=== PATIENT | female | born 1945 | race Caucasian/White ===

== ENCOUNTER → 2018-03-29 | Outpatient (CLI) | payer MEDICARE, BC ==
--- NOTE | 2018-03-29 13:54 | RADIOLOGY REPORT (SQ) ---
EXAM DESCRIPTION: BARIUM SWALLOW ESOPHAGUS COMPLETED DATE/TIME: 03/29/2018 8:41 am REASON FOR STUDY: DYSPHAGIA (R13.10) R13.10 DYSPHAGIA, UNSPECIFIED COMPARISON: None. TECHNIQUE: Under fluoroscopic guidance, patient ingested effervescent granules followed by thick and thin barium. Fluoroscopic spot images and routine radiographic images acquired and stored on PACS. 12 MM BARIUM TABLET GIVEN: Yes. No significant delay in passage. LIMITATIONS: None. FLUOROSCOPY TIME: FLUORO TIME: 1 minutes 33 seconds Multiple fluoroscopic images saved to PACS. FINDINGS: NEUROMUSCULAR COORDINATION OF SWALLOW: Normal. No aspiration. ESOPHAGEAL MOTILITY: Normal peristalsis. No esophageal spasm. ESOPHAGEAL MUCOSA: Normal mucosa without masses or ulceration. GASTRO-ESOPHAGEAL JUNCTION: Moderate hiatal hernia. Reflux to the level of the thoracic inlet. NON-GI TRACT STRUCTURES: No significant finding. OTHER: No other significant finding. IMPRESSION: Hiatal hernia. Marked gastroesophageal reflux. No stricture. COMMENT: Quality ID [id number]: Final reports for procedures using fluoroscopy that document radiation exp osure indices, or exposure time and number of fluorographic images (if radiation exposure indices are not available) TECHNICAL DOCUMENTATION: JOB ID: [id number] [employer] ([place])- All Rights Reserved Reading location - IP/workstation name: [email or web address]
== END ==
LOC: RAD 07:54
PROVIDERS: ATTEND Internal Medicine Gastroenterology
DX: R13.10 Dysphagia, unspecified (principal)
CPT/HCPCS: 74220

== ENCOUNTER 2018-11-23 08:59 | Inpatient (IN) | payer MEDICARE, BC ==
[2018-11-23] MEDS ORDERED: NORMAL SALINE 1000 ML 1,000 ML IV ONE (09:33)
--- NOTE | 2018-11-23 09:34 | ER Document Report ---
ED Medical Screen (RME) - General Chief Complaint: Loose Stools Stated Complaint: DIARRHEA Time Seen by Provider: 11/23/18 09:28 Primary Care Provider: DAVID MORALES MD [Primary Care Provider] - Follow up as needed Notes: Patient states that she was recently discharged from the hospital after being admitted for pancreatitis. Patient does report receiving antibiotics during the admission. Patient states she has had diarrhea since her discharge on 817. Patient states she has had about 10 diarrheal bowel movements today. Patient has had some blood in the stool. Patient denies any fever. Patient complains of mild lower abdominal tenderness. hx; cholecystectomy, hypertension, back pain, pancreatitis, alcohol use I have greeted and performed a rapid initial assessment of this patient. A comprehensive ED assessment and evaluation of the patient, analysis of test results and completion of the medical decision making process will be conducted by additional ED providers. TRAVEL OUTSIDE OF THE [place] IN LAST 30 DAYS: No - Related Data Allergies/Adverse Reactions: diphenhydramine [From Benadryl] Allergy (Verified 11/23/18 09:02) ondansetron [From Zofran] Allergy (Verified 11/23/18 09:02) prochlorperazine [From Compazine] Allergy (Verified 11/23/18 09:02) promethazine [From Phenergan] Allergy (Verified 11/23/18 09:02) Codeine Allergy (Uncoded 11/23/18 09:02) Physical Exam - Vital signs Vitals: Temp Pulse Resp BP Pulse Ox 99.1 F 109 H 16 127/60 H 94 11/23/18 09:07 11/23/18 09:07 11/23/18 09:07 11/23/18 09:07 11/23/18 09:07 - Abdominal Tenderness: Tender - Lower pelvic Course - Vital Signs Vital signs: Temp Pulse Resp BP Pulse Ox 99.1 F 109 H 16 127/60 H 94 11/23/18 09:07 11/23/18 09:07 11/23/18 09:07 11/23/18 09:07 11/23/18 09:07 Doctor's Discharge - Discharge Referrals: DAVID MORALES MD [Primary Care Provider] - Follow up as needed
[2018-11-23 10:11] LABS: HEMATOCRIT 38.4 % (36.0-47.0); HEMOGLOBIN 12.5 g/dL (12.0-15.5); MEAN CORPUSCULAR HEMOGLOBIN 28.9 pg (27.0-33.4); MEAN CORPUSCULAR HGB CONC 32.6 g/dL (32.0-36.0); MEAN CORPUSCULAR VOLUME 89 fl (80-97); PLATELET COUNT 372 10^3/uL (150-450); RED BLOOD COUNT 4.33 10^6/uL (3.72-5.28); RED CELL DISTRIBUTION WIDTH 14.5 % (11.5-14.0); WHITE BLOOD COUNT 22.8 10^3/uL (4.0-10.5)
[2018-11-23 10:34] LABS: ALBUMIN 4.1 g/dL (3.5-5.0); ALKALINE PHOSPHATASE 74 U/L (38-126); ANION GAP 11 (5-19); ASPARTATE AMINO TRANSFERASE 34 U/L (14-36); BILIRUBIN,DIRECT 0.4 mg/dL (0.0-0.4); BILIRUBIN,TOTAL 0.7 mg/dL (0.2-1.3); BLOOD UREA NITROGEN 14 mg/dL (7-20); CALCIUM 9.7 mg/dL (8.4-10.2); CARBON DIOXIDE 24 mmol/L (22-30); CHLORIDE 100 mmol/L (98-107); GLUCOSE 108 mg/dL (75-110); POTASSIUM 4.1 mmol/L (3.6-5.0); TOTAL PROTEIN 7.5 g/dL (6.3-8.2)
[2018-11-23 10:53] LABS: ABSOLUTE LYMPHOCYTES# (MANUAL) 2.3 10^3/uL (0.5-4.7); ABSOLUTE MONOCYTES # (MANUAL) 0.2 10^3/uL (0.1-1.4); ANISOCYTOSIS SLIGHT; BASOPHILS % (MANUAL) 1 % (0-2); EOSINOPHILS % (MANUAL) 0 % (0-6); LYMPHOCYTES % (MANUAL) 10 % (13-45); MONOCYTES % (MANUAL) 1 % (3-13); PLATELET COMMENT ADEQUATE; POLYCHROMASIA SLIGHT; SEGMENTED NEUTROPHILS % (MAN) 88 % (42-78); TOTAL CELLS COUNTED 100
--- NOTE | 2018-11-23 11:06 | ER Document Report ---
ED General - General Chief Complaint: Loose Stools Stated Complaint: DIARRHEA Time Seen by Provider: 11/23/18 09:28 TRAVEL OUTSIDE OF THE [place] IN LAST 30 DAYS: No - HPI Notes: She presents with multiple bouts of loose stools since 11 November after being hospitalized for pancreatitis for 6 days in an outside hospital. Denies any fevers or chills cough congestion or nausea or vomiting. Is not on blood t hinners. Has intermittent abdominal cramping that is not present right now in the emergency department - Related Data Allergies/Adverse Reactions: diphenhydramine [From Benadryl] Allergy (Verified 11/23/18 09:02) ondansetron [From Zofran] Allergy (Verified 11/23/18 09:02) prochlorperazine [From Compazine] Allergy (Verified 11/23/18 09:02) promethazine [From Phenergan] Allergy (Verified 11/23/18 09:02) Codeine Allergy (Uncoded 11/23/18 09:02) Past Medical History - Social History Smoking Status: Former Smoker Frequency of alcohol use: Occasional Drug Abuse: None Family History: Reviewed & Not Pertinent Patient has suicidal ideation: No Patient has homicidal ideation: No Review of Systems - Review of Systems Constitutional: No symptoms reported EENT: No symptoms reported Cardiovascular: No symptoms reported Respiratory: See HPI Gastrointestinal: No symptoms reported Genitourinary: No symptoms reported Female Genitourinary: No symptoms reported Musculoskeletal: No symptoms reported Skin: No symptoms reported Hematologic/Lymphatic: No symptoms reported Neurological/Psychological: No symptoms reported Physical Exam - Vital signs Vitals: Temp Pulse Resp BP Pulse Ox 99.1 F 109 H 16 127/60 H 94 11/23/18 09:07 11/23/18 09:07 11/23/18 09:07 11/23/18 09:07 11/23/18 09:07 - General General appearance: Appears well, Alert - HEENT Head: Normocephalic Eyes: Normal Mucous membranes: Other - Mildly dry oral mucous membranes - Respiratory Respiratory status: No respiratory distress Chest status: Nontender Breath sounds: Normal - Cardiovascular Rhythm: Regular Heart sounds: Normal auscultation Murmur: No - Abdominal Inspection: Normal Distension: No distension Bowel sounds: Normal - Extremities General upper extremity: Normal inspection General lower extremity: Normal strength - Neurological Neuro grossly intact: Yes Cognition: Normal Orientation: AAOx4 Course - Re-evaluation Re-evalutation: 11/23/18 12:31 Patient found to have C. difficile with blood. Due to age and numerous similar stools per day will be hospitalized at this time. - Vital Signs Vital signs: Temp Pulse Resp BP Pulse Ox 97.5 F 104 H 18 144/85 H 94 11/24/18 08:35 11/24/18 08:35 11/24/18 08:35 11/24/18 08:35 11/24/18 08:35 - Laboratory Result Diagrams: 11/24/18 03:35 11/24/18 03:35 Laboratory results interpreted by me: 11/23/18 11/23/18 11/23/18 09:55 09:55 11:20 WBC 22.8 H RDW 14.5 H Seg Neuts % (Manual) 88 H Lymphocytes % (Manual) 10 L Monocytes % (Manual) 1 L Abs Neuts (Manual) 20.1 H Sodium 135.2 L Est GFR (MDRD) Non-Af 59 L Urine Protein 100 H Urine Blood MODERATE H Ur Leukocyte Esterase TRACE H Discharge - Discharge Clinical Impression: C. difficile diarrhea Condition: Good Disposition: ADMITTED INPATIENT Admitting Provider: Geraldine (Hospitalist) Unit Admitted: Medical Floor
[2018-11-23 11:37] LABS: APPEARANCE,URINE CLOUDY; BILIRUBIN,URINE NEGATIVE (NEGATIVE); COLOR,URINE YELLOW; GLUCOSE, URINE NEGATIVE (NEGATIVE); KETONES,URINE NEGATIVE (NEGATIVE); LEUKOCYTE ESTERASE,URINE TRACE (NEGATIVE); NITRITE,URINE NEGATIVE (NEGATIVE); PROTEIN,URINE 100 mg/dL (NEGATIVE); URINE SPECIFIC GRAVITY 1.026; UROBILINOGEN,URINE NEGATIVE mg/dL (<2.0)
[2018-11-23] MEDS ORDERED: VANCOMYCIN HCL INJ 500 MG VIAL PO ONE (12:30)
--- NOTE | 2018-11-23 16:10 | PDOC H&P ---
History of Present Illness Admission Date/PCP: 11/23/18 13:00 History of Present Illness: JOSE ESPINOZA is a 73 year old female who said she was in the hospital about a week and a half ago in [place] with a pancreatitis, and she said at that time she was given some antibiotics because the provider she was seeing there was trying to speed up her recovery said that she could catch her flight home, according to her. She said the diarrhea started shortly before she was discharged and it has been getting progressively worse. She said she had been 10 times today and had 3 episodes while she was in the ER. She has not been running a fever, but she said her p.o. intake is decreased and she has not eaten anything about a day and a half. She describes her stool as loose and watery. She came into the ER and was found to have a leukocytosis and her stool was positive for C. difficile. She is being admitted for IV fluids and oral vancomycin. Past Medical History Past Medical History: Anxiety, hyperlipidemia, osteopenia Social History Smoking Status: Former Smoker Family History Parental Family History Reviewed: Yes - Hypertension Children Family History Reviewed: Yes - Nothing known Sibling(s) Family History Reviewed.: Yes - Nothing known Medication/Allergy Home Medications: Alendronate Sodium [Fosamax "Weekly" 35 mg Tablet] 35 mg PO GALVAN@1000 11/23/18 Estradiol [Estrace] 1 applic PV MOWEFR@1000 11/23/18 Lansoprazole [Prevacid] 30 mg PO DAILY 11/23/18 Lorazepam [Ativan 1 mg Tablet] 1 mg PO DAILYP PRN 11/23/18 Mirtazapine [Remeron 15 mg Tablet] 15 mg PO QHS 11/23/18 Pramipexole Di-HCl [Mirapex] 1 mg PO QHS 11/23/18 Simvastatin [Zocor 40 mg Tablet] 40 mg PO QHS 11/23/18 Allergies/Adverse Reactions: diphenhydramine [From Benadryl] Allergy (Verified 11/23/18 09:02) ondansetron [From Zofran] Allergy (Verified 11/23/18 09:02) prochlorperazine [From Compazine] Allergy (Verified 11/23/18 09:02) promethazine [From Phenergan] Allergy (Verified 11/23/18 09:02) Codeine Allergy (Uncoded 11/23/18 09:02) Review of Systems All systems: reviewed and no additional remarkable complaints except as stated - All systems were reviewed and were negative except as noted in the HPI Physical Exam Vital Signs: Temp Pulse Resp BP Pulse Ox 99.1 F 109 H 16 127/60 H 94 11/23/18 09:07 11/23/18 09:07 11/23/18 09:07 11/23/18 09:07 11/23/18 09:07 Intake & Output 11/22/18 11/23/18 11/24/18 06:59 06:59 06:59 Intake Total 1000 Balance 1000 Weight 63.1 kg General appearance: PRESENT: no acute distress, cooperative, disheveled Head exam: PRESENT: atraumatic, normocephalic Eye exam: PRESENT: EOMI, PERRLA. ABSENT: conjunctival injection, nystagmus, scleral icterus Ear exam: PRESENT: normal external ear exam Mouth exam: PRESENT: moist, neck supple Throat exam: ABSENT: post pharyngeal erythema Neck exam: PRESENT: full ROM. ABSENT: carotid bruit, JVD, lymphadenopathy, meningismus, tenderness, thyromegaly Respiratory exam: PRESENT: clear to auscultation radha, symmetrical, unlabored. ABSENT: accessory muscle use, chest wall tenderness, crackles, prolonged expiratory phas, rhonchi, tachypnea, wheezes Cardiovascular exam: PRESENT: RRR, +S1, +S2 Pulses: PRESENT: normal carotid pulses Vascular exam: PRESENT: normal capillary refill GI/Abdominal exam: PRESENT: hyperactive bowel sounds, soft. ABSENT: distended, guarding, rebound, tenderness Extremities exam: ABSENT: clubbing, pedal edema Musculoskeletal exam: PRESENT: normal inspection. ABSENT: deformity Neurological exam: PRESENT: alert, awake, oriented to person, oriented to place, oriented to time, oriented to situation, CN II-XII grossly intact. ABSENT: motor sensory deficit Psychiatric exam: PRESENT: appropriate affect, normal mood Skin exam: PRESENT: dry, warm Results Laboratory Results: 11/23/18 09:55 11/23/18 09:55 11/23/18 11/23/18 11/23/18 09:55 09:55 11:20 WBC 22.8 H RBC 4.33 Hgb 12.5 Hct 38.4 MCV 89 MCH 28.9 MCHC 32.6 RDW 14.5 H Plt Count 372 Seg Neutrophils % Not Reportable Sodium 135.2 L Potassium 4.1 Chloride 100 Carbon Dioxide 24 Anion Gap 11 BUN 14 Creatinine 0.93 Est GFR ( Amer) > 60 Glucose 108 Calcium 9.7 Total Bilirubin 0.7 AST 34 Alkaline Phosphatase 74 Total Protein 7.5 Albumin 4.1 Lipase 31.9 Urine Color YELLOW Urine Appearance CLOUDY Urine pH 5.0 Ur Specific [place] 1.026 Urine Protein 100 H Urine Glucose (UA) NEGATIVE Urine Ketones NEGATIVE Urine Blood MODERATE H Urine Nitrite NEGATIVE Ur Leukocyte Esterase TRACE H Urine WBC (Auto) 18 Urine RBC (Auto) 2 Assessment and Plan - Diagnosis (1) C. difficile diarrhea Is this a current diagnosis for this admission?: Yes Plan: We are going to give her some IV fluids because even though her labs look good she is sure to be dehydrated. We are starting her on some p.o. vancomycin and will assess her response. We will continue to check her electrolytes to see if they need to be replaced. - Time Time Spent with patient: 35 or more minutes - Inpatient Certification Based on my medical assessment, after consideration of the patient's comorbidities, presenting symptoms, or acuity I expect that the services needed warrant INPATIENT care.: Yes I certify that my determination is in accordance with my understanding of Medicare's requirements for reasonable and necessary INPATIENT services [42 CFR 412.3e].: Yes Medical Necessity: Need Close Monitoring Due to Risk of Patient Decompensation, Need For IV Fluids, Risk of Complication if Not Cared For in Hospital
[2018-11-23] MEDS: VANCOMYCIN HCL INJ 500 MG VIAL PO SCH (18:18)
[2018-11-23] MEDS ORDERED: PRAMIPEXOLE DI-HCL 0.5 MG TABLET PO SCH (22:00)
[2018-11-23] MEDS ORDERED: (PENDING PHARMACY ID) (Pramipexole Di-Hcl [Mirapex] 1 MG) PO SCH (22:00)
[2018-11-23] MEDS: MIRTAZAPINE 15 MG TABLET PO SCH (22:52)
[2018-11-23] MEDS: SIMVASTATIN 40 MG TABLET PO SCH (22:53)
[2018-11-23] MEDS: HEPARIN SOD (PORCINE) 5,000 UNIT/ML 1 ML VIAL SUBCUT SCH (22:58)
[2018-11-24] MEDS: VANCOMYCIN HCL INJ 500 MG VIAL PO SCH ×4 (00:38→17:37)
[2018-11-24 04:10] LABS: HEMATOCRIT 34.5 % (36.0-47.0); HEMOGLOBIN 11.4 g/dL (12.0-15.5); MEAN CORPUSCULAR HEMOGLOBIN 29.3 pg (27.0-33.4); MEAN CORPUSCULAR VOLUME 89 fl (80-97); PLATELET COUNT 309 10^3/uL (150-450); RED BLOOD COUNT 3.88 10^6/uL (3.72-5.28); RED CELL DISTRIBUTION WIDTH 14.5 % (11.5-14.0)
[2018-11-24 04:40] LABS: ANION GAP 8 (5-19); BLOOD UREA NITROGEN 11 mg/dL (7-20); CALCIUM 8.9 mg/dL (8.4-10.2); CARBON DIOXIDE 25 mmol/L (22-30); CHLORIDE 105 mmol/L (98-107); GLUCOSE 108 mg/dL (75-110); POTASSIUM 4.2 mmol/L (3.6-5.0)
[2018-11-24] MEDS: HEPARIN SOD (PORCINE) 5,000 UNIT/ML 1 ML VIAL SUBCUT SCH ×3 (05:57→22:09)
[2018-11-24] MEDS ORDERED: (PENDING PHARMACY ID) (Lansoprazole [Prevacid] 30 MG) PO SCH (10:00)
[2018-11-24] MEDS ORDERED: ESTRADIOL PV SCH (10:00)
[2018-11-24] MEDS: NORMAL SALINE 1000 ML 1,000 ML IV PRN (10:12)
[2018-11-24] MEDS: PANTOPRAZOLE SODIUM 40 MG TABLET.DR PO SCH (10:12)
[2018-11-24] MEDS: PRAMIPEXOLE DI-HCL 0.5 MG TABLET PO SCH (17:38)
--- NOTE | 2018-11-24 17:40 | PDOC PROGRESS REPORT ---
Subjective Progress Note for:: 11/24/18 Subjective:: No adverse events overnight. She says she still had several bowel movements overnight and has had a few already by the time I had seen her this morning. She said other than that she feels fine. She had a little bit of nausea this morning but that is since resolved. Reason For Visit: C DIFFICILE COLITIS Physical Exam Vital Signs: Temp Pulse Resp BP Pulse Ox 98.5 F 93 18 146/83 H 100 11/24/18 13:09 11/24/18 14:00 11/24/18 13:09 11/24/18 13:09 11/24/18 13:09 Intake & Output 11/23/18 11/24/18 11/25/18 06:59 06:59 06:59 Intake Total 1882 480 Output Total 0 Balance 1882 480 Weight 63.2 kg General appearance: PRESENT: no acute distress, cooperative Respiratory exam: PRESENT: clear to auscultation radha, symmetrical, unlabored. ABSENT: accessory muscle use, chest wall tenderness, crackles, prolonged expiratory phas, rhonchi, tachypnea, wheezes Cardiovascular exam: PRESENT: RRR, +S1, +S2 Pulses: PRESENT: normal carotid pulses Vascular exam: PRESENT: normal capillary refill GI/Abdominal exam: PRESENT: normal bowel sounds, soft. ABSENT: distended, guarding, rebound, tenderness Extremities exam: ABSENT: clubbing, pedal edema Musculoskeletal exam: ABSENT: deformity Neurological exam: PRESENT: alert, awake, oriented to person, oriented to place, oriented to time, oriented to situation Psychiatric exam: PRESENT: appropriate affect, normal mood Skin exam: PRESENT: dry, warm Results Laboratory Results: 11/24/18 03:35 11/24/18 03:35 11/24/18 11/24/18 03:35 03:35 WBC 16.0 H RBC 3.88 Hgb 11.4 L Hct 34.5 L MCV 89 MCH 29.3 MCHC 33.0 RDW 14.5 H Plt Count 309 Sodium 138.1 Potassium 4.2 Chloride 105 Carbon Dioxide 25 Anion Gap 8 BUN 11 Creatinine 0.79 Est GFR ( Amer) > 60 Glucose 108 Calcium 8.9 Assessment and Plan - Diagnosis (1) C. difficile diarrhea Is this a current diagnosis for this admission?: Yes Plan: Her white blood cell count is coming down and her electrolytes look good, but she still having a lot of stool output. We will give her another day of the vancomycin, and if she still having a high stool output tomorrow, will add adjunctive Flagyl. - Time Time Spent with patient: 15-24 minutes
[2018-11-24] MEDS: SIMVASTATIN 40 MG TABLET PO SCH (22:17)
[2018-11-24] MEDS: MIRTAZAPINE 15 MG TABLET PO SCH (22:17)
[2018-11-24] MEDS: LORAZEPAM 1 MG TABLET PO PRN (22:20)
[2018-11-25] MEDS: VANCOMYCIN HCL INJ 500 MG VIAL PO SCH ×4 (00:36→17:21)
[2018-11-25] MEDS: NORMAL SALINE 1000 ML 1,000 ML IV PRN (01:23)
[2018-11-25 04:52] LABS: HEMATOCRIT 33.7 % (36.0-47.0); HEMOGLOBIN 11.2 g/dL (12.0-15.5); MEAN CORPUSCULAR HEMOGLOBIN 29.2 pg (27.0-33.4); MEAN CORPUSCULAR HGB CONC 33.2 g/dL (32.0-36.0); MEAN CORPUSCULAR VOLUME 88 fl (80-97); PLATELET COUNT 333 10^3/uL (150-450); RED BLOOD COUNT 3.82 10^6/uL (3.72-5.28); RED CELL DISTRIBUTION WIDTH 14.1 % (11.5-14.0); WHITE BLOOD COUNT 10.2 10^3/uL (4.0-10.5)
[2018-11-25 05:04] LABS: ANION GAP 8 (5-19); BLOOD UREA NITROGEN 8 mg/dL (7-20); CALCIUM 8.6 mg/dL (8.4-10.2); CARBON DIOXIDE 23 mmol/L (22-30); CHLORIDE 110 mmol/L (98-107); GLUCOSE 87 mg/dL (75-110); POTASSIUM 3.8 mmol/L (3.6-5.0)
[2018-11-25] MEDS: HEPARIN SOD (PORCINE) 5,000 UNIT/ML 1 ML VIAL SUBCUT SCH ×3 (05:09→22:18)
[2018-11-25] MEDS: PANTOPRAZOLE SODIUM 40 MG TABLET.DR PO SCH (09:31)
[2018-11-25] MEDS: METRONIDAZOLE 500 MG TABLET PO SCH ×2 (11:47→17:21)
[2018-11-25] MEDS ORDERED: LORAZEPAM 1 MG TABLET ONE (12:28)
[2018-11-25] MEDS: LORAZEPAM 1 MG TABLET PO PRN (12:29)
--- NOTE | 2018-11-25 16:16 | PDOC PROGRESS REPORT ---
Subjective Progress Note for:: 11/25/18 Subjective:: She said that since yesterday morning she has had 16 bowel movements. She has not had any fevers and her white count is come down but she still has a high volume stool output. She was very anxious about it. Reason For Visit: C DIFFICILE COLITIS Physical Exam Vital Signs: Temp Pulse Resp BP Pulse Ox 97.5 F 115 H 18 126/73 H 96 11/25/18 13:03 11/25/18 14:00 11/25/18 13:03 11/25/18 13:03 11/25/18 13:03 Intake & Output 11/24/18 11/25/18 11/26/18 06:59 06:59 06:59 Intake Total 1882 2100 Output Total 0 Balance 1882 2100 Weight 63.2 kg 62.9 kg General appearance: PRESENT: no acute distress, cooperative Respiratory exam: PRESENT: clear to auscultation radha, symmetrical, unlabored. ABSENT: accessory muscle use, chest wall tenderness, crackles, prolonged expiratory phas, rhonchi, tachypnea, wheezes Cardiovascular exam: PRESENT: RRR, +S1, +S2 Pulses: PRESENT: normal carotid pulses Vascular exam: PRESENT: normal capillary refill GI/Abdominal exam: PRESENT: normal bowel sounds, soft. ABSENT: distended, guarding, rebound, tenderness Extremities exam: ABSENT: clubbing, pedal edema Musculoskeletal exam: ABSENT: deformity Neurological exam: PRESENT: alert, awake, oriented to person, oriented to place, oriented to time, oriented to situation Psychiatric exam: PRESENT: appropriate affect, normal mood Skin exam: PRESENT: dry, warm Results Laboratory Results: 11/25/18 04:33 11/25/18 04:33 11/25/18 11/25/18 04:33 04:33 WBC 10.2 RBC 3.82 Hgb 11.2 L Hct 33.7 L MCV 88 MCH 29.2 MCHC 33.2 RDW 14.1 H Plt Count 333 Sodium 141.3 Potassium 3.8 Chloride 110 H Carbon Dioxide 23 Anion Gap 8 BUN 8 Creatinine 0.59 Est GFR ( Amer) > 60 Glucose 87 Calcium 8.6 11/23/18 10:01 Stool - Stool - Final Assessment and Plan - Diagnosis (1) C. difficile diarrhea Is this a current diagnosis for this admission?: Yes Plan: We will continue with oral vancomycin but I am going to add oral Flagyl. We will try that for a day. If she still having high volume of stool output tomorrow, I will probably add Dificid. If I have to add Dificid and it does not help her, will get a GI consultation. - Time Time Spent with patient: 15-24 minutes
[2018-11-25] MEDS: PRAMIPEXOLE DI-HCL 0.5 MG TABLET PO SCH (17:21)
[2018-11-25] MEDS: MIRTAZAPINE 15 MG TABLET PO SCH (22:12)
[2018-11-25] MEDS: SIMVASTATIN 40 MG TABLET PO SCH (22:12)
[2018-11-26] MEDS: LORAZEPAM 1 MG TABLET PO PRN ×2 (00:35→22:38)
[2018-11-26] MEDS: VANCOMYCIN HCL INJ 500 MG VIAL PO SCH ×4 (00:35→17:27)
[2018-11-26] MEDS: METRONIDAZOLE 500 MG TABLET PO SCH ×4 (00:36→17:28)
[2018-11-26 05:43] LABS: HEMATOCRIT 33.2 % (36.0-47.0); HEMOGLOBIN 11.2 g/dL (12.0-15.5); MEAN CORPUSCULAR HEMOGLOBIN 29.5 pg (27.0-33.4); MEAN CORPUSCULAR HGB CONC 33.8 g/dL (32.0-36.0); MEAN CORPUSCULAR VOLUME 87 fl (80-97); PLATELET COUNT 322 10^3/uL (150-450); WHITE BLOOD COUNT 8.2 10^3/uL (4.0-10.5)
[2018-11-26 05:52] LABS: ANION GAP 8 (5-19); BLOOD UREA NITROGEN 5 mg/dL (7-20); CALCIUM 8.7 mg/dL (8.4-10.2); CARBON DIOXIDE 21 mmol/L (22-30); CHLORIDE 110 mmol/L (98-107); GLUCOSE 86 mg/dL (75-110); POTASSIUM 3.6 mmol/L (3.6-5.0)
[2018-11-26] MEDS: HEPARIN SOD (PORCINE) 5,000 UNIT/ML 1 ML VIAL SUBCUT SCH ×2 (06:02→14:16)
[2018-11-26] MEDS: PANTOPRAZOLE SODIUM 40 MG TABLET.DR PO SCH (09:57)
--- NOTE | 2018-11-26 14:26 | PDOC PROGRESS REPORT ---
Subjective Progress Note for:: 11/26/18 Subjective:: No adverse events overnight. She did not have any documented bowel movements overnight, but she told me that she has had 5 already this morning. The nurse tells me she has not seen the patient having any bowel movements. Reason For Visit: C DIFFICILE COLITIS Physical Exam Vital Signs: Temp Pulse Resp BP Pulse Ox 98.3 F 81 14 144/69 H 100 11/26/18 11:47 11/26/18 11:47 11/26/18 11:47 11/26/18 11:47 11/26/18 11:47 Intake & Output 11/25/18 11/26/18 11/27/18 06:59 06:59 06:59 Intake Total 2100 1480 240 Output Total 300 Balance 2100 1480 -60 Weight 62.9 kg 65.5 kg General appearance: PRESENT: no acute distress, cooperative Respiratory exam: PRESENT: clear to auscultation radha, symmetrical, unlabored. ABSENT: accessory muscle use, chest wall tenderness, crackles, prolonged expiratory phas, rhonchi, tachypnea, wheezes Cardiovascular exam: PRESENT: RRR, +S1, +S2 Pulses: PRESENT: normal carotid pulses Vascular exam: PRESENT: normal capillary refill GI/Abdominal exam: PRESENT: normal bowel sounds, soft. ABSENT: distended, guarding, rebound, tenderness Extremities exam: ABSENT: clubbing, pedal edema Musculoskeletal exam: ABSENT: deformity Neurological exam: PRESENT: alert, awake, oriented to person, oriented to place, oriented to time, oriented to situation Psychiatric exam: PRESENT: appropriate affect, normal mood Skin exam: PRESENT: dry, warm Results Laboratory Results: 11/26/18 05:05 11/26/18 05:05 11/26/18 11/26/18 05:05 05:05 WBC 8.2 RBC 3.80 Hgb 11.2 L Hct 33.2 L MCV 87 MCH 29.5 MCHC 33.8 RDW 14.0 Plt Count 322 Sodium 139.2 Potassium 3.6 Chloride 110 H Carbon Dioxide 21 L Anion Gap 8 BUN 5 L Creatinine 0.59 Est GFR ( Amer) > 60 Glucose 86 Calcium 8.7 11/23/18 10:01 Stool - Stool - Final 11/23/18 10:01 Stool - Stool Stool Culture - Final NO SALMONELLA, SHIGELLA, CAMPYLOBACTER, OR E.COLI 0157 RECOVERED. NEGATIVE FOR SHIGA TOXINS 1&2. Assessment and Plan - Diagnosis (1) C. difficile diarrhea Is this a current diagnosis for this admission?: Yes Plan: I added Flagyl to her vancomycin yesterday. She still states she has high output, but were going to collect and measure each bowel movements because I want to make sure that what she is telling me is true. If so, will probably have to add Dificid. - Time Time Spent with patient: 15-24 minutes
[2018-11-26] MEDS: PRAMIPEXOLE DI-HCL 0.5 MG TABLET PO SCH (17:28)
[2018-11-26] MEDS: MIRTAZAPINE 15 MG TABLET PO SCH (22:29)
[2018-11-26] MEDS: SIMVASTATIN 40 MG TABLET PO SCH (22:30)
[2018-11-27] MEDS: HEPARIN SOD (PORCINE) 5,000 UNIT/ML 1 ML VIAL SUBCUT SCH ×4 (00:18→21:19)
[2018-11-27] MEDS: METRONIDAZOLE 500 MG TABLET PO SCH ×4 (00:33→17:45)
[2018-11-27] MEDS: VANCOMYCIN HCL INJ 500 MG VIAL PO SCH ×4 (00:33→17:45)
[2018-11-27] MEDS: PANTOPRAZOLE SODIUM 40 MG TABLET.DR PO SCH (09:38)
--- NOTE | 2018-11-27 16:59 | PDOC PROGRESS REPORT ---
Subjective Progress Note for:: 11/27/18 Subjective:: No adverse events overnight. No new complaints. We measure a bowel movements yesterday and she is had about 12 in the last 24 hours. She is been afebrile. She is drinking plenty of liquids but not eating very much because she says she feels like it just goes right through her. She is very anxious. Reason For Visit: C DIFFICILE COLITIS Physical Exam Vital Signs: Temp Pulse Resp BP Pulse Ox 98.8 F 97 17 147/80 H 97 11/27/18 15:26 11/27/18 15:26 11/27/18 15:26 11/27/18 15:26 11/27/18 15:26 Intake & Output 11/26/18 11/27/18 11/28/18 06:59 06:59 06:59 Intake Total 1480 705 240 Output Total 300 Balance 1480 405 240 Weight 65.5 kg 65.3 kg General appearance: PRESENT: no acute distress, cooperative Respiratory exam: PRESENT: clear to auscultation radha, symmetrical, unlabored. ABSENT: accessory muscle use, chest wall tenderness, crackles, prolonged expiratory phas, rhonchi, tachypnea, wheezes Cardiovascular exam: PRESENT: RRR, +S1, +S2 Pulses: PRESENT: normal carotid pulses Vascular exam: PRESENT: normal capillary refill GI/Abdominal exam: PRESENT: normal bowel sounds, soft. ABSENT: distended, guarding, rebound, tenderness Extremities exam: ABSENT: clubbing, pedal edema Musculoskeletal exam: ABSENT: deformity Neurological exam: PRESENT: alert, awake, oriented to person, oriented to place, oriented to time, oriented to situation Psychiatric exam: PRESENT: appropriate affect, normal mood Skin exam: PRESENT: dry, warm Results Laboratory Results: 11/26/18 05:05 11/26/18 05:05 Assessment and Plan - Diagnosis (1) C. difficile diarrhea Is this a current diagnosis for this admission?: Yes Plan: I have increased her vancomycin to 500 mg every 6 hours, continue Flagyl, and will add Dificid. If this combination does not get her condition under control, she will need a GI consultation. The concern would be for development of a pseudomembranous colitis. - Time Time Spent with patient: 15-24 minutes
[2018-11-27] MEDS: PRAMIPEXOLE DI-HCL 0.5 MG TABLET PO SCH (17:45)
[2018-11-27] MEDS: SIMVASTATIN 40 MG TABLET PO SCH (21:37)
[2018-11-27] MEDS: FIDAXOMICIN 200 MG TABLET PO SCH (21:40)
[2018-11-27] MEDS: LORAZEPAM 1 MG TABLET PO PRN (22:38)
[2018-11-27] MEDS: MIRTAZAPINE 15 MG TABLET PO SCH (22:38)
[2018-11-28] MEDS: VANCOMYCIN HCL INJ 500 MG VIAL PO SCH ×4 (00:25→18:47)
[2018-11-28] MEDS: METRONIDAZOLE 500 MG TABLET PO SCH ×4 (00:26→18:47)
[2018-11-28] MEDS: HEPARIN SOD (PORCINE) 5,000 UNIT/ML 1 ML VIAL SUBCUT SCH ×4 (05:44→21:38)
[2018-11-28] MEDS: FIDAXOMICIN 200 MG TABLET PO SCH ×2 (09:31→23:01)
[2018-11-28] MEDS: PANTOPRAZOLE SODIUM 40 MG TABLET.DR PO SCH (09:31)
[2018-11-28] MEDS: LORAZEPAM 1 MG TABLET PO PRN ×2 (14:09→23:07)
--- NOTE | 2018-11-28 17:49 | PDOC PROGRESS REPORT ---
Subjective Progress Note for:: 11/28/18 Subjective:: The patient is extremely anxious. She does not understand the disease process. She wonders why is it is taking so long for her to get better. Reason For Visit: C DIFFICILE COLITIS Physical Exam Vital Signs: Temp Pulse Resp BP Pulse Ox 98.5 F 99 20 116/60 97 11/28/18 16:09 11/28/18 16:09 11/28/18 16:09 11/28/18 16:09 11/28/18 16:09 Intake & Output 11/27/18 11/28/18 11/29/18 06:59 06:59 06:59 Intake Total 705 670 237 Output Total 300 100 Balance 405 670 137 Weight 65.3 kg 65.3 kg General appearance: PRESENT: cooperative, mild distress, well-developed Head exam: PRESENT: atraumatic, normocephalic Eye exam: PRESENT: conjunctiva pink. ABSENT: scleral icterus Ear exam: PRESENT: normal external ear exam. ABSENT: bleeding, drainage Neck exam: PRESENT: full ROM. ABSENT: JVD, lymphadenopathy Respiratory exam: PRESENT: clear to auscultation radha, symmetrical, unlabored. A BSENT: accessory muscle use, rales, rhonchi, tachypnea, wheezes Cardiovascular exam: PRESENT: RRR, +S1, +S2 GI/Abdominal exam: PRESENT: normal bowel sounds, soft, tenderness - scratcher tender across the lower abdomen. ABSENT: distended, guarding Rectal exam: PRESENT: deferred Gentrourinary exam: ABSENT: indwelling catheter Extremities exam: ABSENT: calf tenderness, joint swelling, pedal edema Musculoskeletal exam: PRESENT: ambulatory, normal inspection Neurological exam: PRESENT: alert, awake, oriented to person, oriented to place, oriented to time, oriented to situation, CN II-XII grossly intact. ABSENT: motor sensory deficit Psychiatric exam: PRESENT: anxious, other - Affect reflects her anxiety and frustration. ABSENT: agitated Focused psych exam: ABSENT: delusional, restlessness Skin exam: PRESENT: dry, normal color, warm. ABSENT: rash Results Laboratory Results: 11/26/18 05:05 11/26/18 05:05 Assessment and Plan - Diagnosis (1) C. difficile diarrhea Is this a current diagnosis for this admission?: Yes Plan: 11/28/2018-the patient is currently on triple therapy with vancomycin 500 mg 4 times a day as well as Flagyl and Dificid. Her white count is normal. Her bowel movements are slowing down. She is having somewhat less pain. The patient was frustrated and did not seem to understand what was going on. We had a long discussion where I explained that the antibiotics that she got while in [place] likely killed all the good bacteria leaving the bad bacteria to multiply. The bad bacteria produces a toxin. This causes inflammation in the colon normal colon can no longer absorb water hence the watery diarrhea. I described this using a diagram as well. The patient was much more comfortable with this explanation. We will continue the current antibiotic regimen. She is not having formed stool yet. She is only on day 5 and the Dificid was just added. Continue current regimen for now. Of note, her diet is improving. (2) Leukocytosis Qualifiers: Leukocytosis type: unspecified Qualified Code(s): D72.829 - Elevated white blood cell count, unspecified Is this a current diagnosis for this admission?: Yes Plan: 11/28/2018-secondary to the C. difficile. With aggressive antibiotic therapy her white blood cell count has normalized. Continue to monitor. (3) Abdominal pain Qualifiers: Abdominal location: lower abdomen, unspecified Qualified Code(s): R10.30 - Lower abdominal pain, unspecified Is this a current diagnosis for this admission?: Yes Plan: I explained that abdominal pain is a normal occurrence with the type of infection she has. She understands that there is inflammation in the bowel. She also realizes that having multiple bowel movements daily can cause some discomfort. She does report that the pain is getting better and her appetite is improving. The stools are no longer watery but not yet formed. I told her that with time the pain will subside. - Time Time Spent with patient: 25-34 minutes Medications reviewed and adjusted accordingly: Yes Anticipated discharge: Home
[2018-11-28] MEDS: PRAMIPEXOLE DI-HCL 0.5 MG TABLET PO SCH (18:49)
[2018-11-28] MEDS: SIMVASTATIN 40 MG TABLET PO SCH (23:01)
[2018-11-28] MEDS: MIRTAZAPINE 15 MG TABLET PO SCH (23:01)
[2018-11-29] MEDS: METRONIDAZOLE 500 MG TABLET PO SCH ×5 (01:03→23:04)
[2018-11-29] MEDS: VANCOMYCIN HCL INJ 500 MG VIAL PO SCH ×4 (01:03→17:58)
[2018-11-29] MEDS: HEPARIN SOD (PORCINE) 5,000 UNIT/ML 1 ML VIAL SUBCUT SCH ×3 (05:36→23:03)
[2018-11-29 06:06] LABS: HEMATOCRIT 36.7 % (36.0-47.0); HEMOGLOBIN 12.2 g/dL (12.0-15.5); MEAN CORPUSCULAR HEMOGLOBIN 29.1 pg (27.0-33.4); MEAN CORPUSCULAR HGB CONC 33.3 g/dL (32.0-36.0); MEAN CORPUSCULAR VOLUME 88 fl (80-97); PLATELET COUNT 335 10^3/uL (150-450); RED CELL DISTRIBUTION WIDTH 14.1 % (11.5-14.0); WHITE BLOOD COUNT 9.5 10^3/uL (4.0-10.5)
[2018-11-29 06:28] LABS: ANION GAP 9 (5-19); BLOOD UREA NITROGEN 12 mg/dL (7-20); CALCIUM 9.5 mg/dL (8.4-10.2); CARBON DIOXIDE 28 mmol/L (22-30); CHLORIDE 103 mmol/L (98-107); GLUCOSE 100 mg/dL (75-110)
[2018-11-29] MEDS: PANTOPRAZOLE SODIUM 40 MG TABLET.DR PO SCH (10:03)
[2018-11-29] MEDS: LACTOBACILLUS ACIDOPHILUS 250 MG TAB PO SCH ×2 (10:03→17:58)
[2018-11-29] MEDS: FIDAXOMICIN 200 MG TABLET PO SCH ×2 (10:03→23:04)
--- NOTE | 2018-11-29 14:23 | PDOC PROGRESS REPORT ---
Subjective Progress Note for:: 11/29/18 Subjective:: Still with distended stomach and loose stool Reason For Visit: C DIFFICILE COLITIS Physical Exam Vital Signs: Temp Pulse Resp BP Pulse Ox 98.3 F 97 16 147/68 H 97 11/29/18 12:56 11/29/18 12:56 11/29/18 12:56 11/29/18 12:56 11/29/18 12:56 Intake & Output 11/28/18 11/29/18 11/30/18 06:59 06:59 06:59 Intake Total 670 477 216 Output Total 100 550 Balance 670 377 -150 Weight 65.3 kg 65.3 kg General appearance: PRESENT: cooperative, mild distress, well-developed Head exam: PRESENT: atraumatic, normocephalic Ear exam: PRESENT: normal external ear exam. ABSENT: bleeding, drainage Mouth exam: PRESENT: moist, tongue midline Respiratory exam: PRESENT: clear to auscultation radha, symmetrical, unlabored. ABSENT: rales, rhonchi, tachypnea, wheezes Cardiovascular exam: PRESENT: RRR, +S1, +S2 GI/Abdominal exam: PRESENT: distended, normal bowel sounds, soft, tenderness - Left lower quadrant Rectal exam: PRESENT: deferred Extremities exam: ABSENT: calf tenderness, joint swelling, pedal edema Musculoskeletal exam: PRESENT: ambulatory, normal inspection. ABSENT: deformity Neurological exam: PRESENT: alert, awake, oriented to person, oriented to place, oriented to time, oriented to situation, CN II-XII grossly intact. ABSENT: motor sensory deficit Psychiatric exam: PRESENT: appropriate affect. ABSENT: agitated, anxious Focused psych exam: ABSENT: delusional, restlessness Results Laboratory Results: 11/29/18 05:47 11/29/18 05:47 11/29/18 11/29/18 05:47 05:47 WBC 9.5 RBC 4.20 Hgb 12.2 Hct 36.7 MCV 88 MCH 29.1 MCHC 33.3 RDW 14.1 H Plt Count 335 Sodium 140.4 Potassium 4.0 Chloride 103 Carbon Dioxide 28 Anion Gap 9 BUN 12 Creatinine 0.75 Est GFR ( Amer) > 60 Glucose 100 Calcium 9.5 Magnesium 1.9 Assessment and Plan - Diagnosis (1) C. difficile diarrhea Is this a current diagnosis for this admission?: Yes Plan: 11/28/2018-the patient is currently on triple therapy with vancomycin 500 mg 4 times a day as well as Flagyl and Dificid. Her white count is normal. Her bowel movements are slowing down. She is having somewhat less pain. The patient was frustrated and did not seem to understand what was going on. We had a long discussion where I explained that the antibiotics that she got while in [place] likely killed all the good bacteria leaving the bad bacteria to multiply. The bad bacteria produces a toxin. This causes inflammation in the colon normal colon can no longer absorb water hence the watery diarrhea. I described this using a diagram as well. The patient was much more comfortable with this explanation. We will continue the current antibiotic regimen. She is not having formed stool yet. She is only on day 5 and the Dificid was just added. Continue current regimen for now. Of note, her diet is improving. 11/29/2018-the patient is still having loose stool. Her abdomen is warp bleaching vat tender despite decreased frequency of bowel movements. This is likely due to the inflammation as this can take several days to dissipate. (2) Leukocytosis Qualifiers: Leukocytosis type: unspecified Qualified Code(s): D72.829 - Elevated white blood cell count, unspecified Is this a current diagnosis for this admission?: Yes Plan: 11/28/2018-secondary to the C. difficile. With aggressive antibiotic therapy her white blood cell count has normalized. Continue to monitor. 11/29/2018-white blood cell count is normal. (3) Abdominal pain Qualifiers: Abdominal location: lower abdomen, unspecified Qualified Code(s): R10.30 - Lower abdominal pain, unspecified Is this a current diagnosis for this admission?: Yes Plan: I explained that abdominal pain is a normal occurrence with the type of infe ction she has. She understands that there is inflammation in the bowel. She also realizes that having multiple bowel movements daily can cause some discomfort. She does report that the pain is getting better and her appetite is improving. The stools are no longer watery but not yet formed. I told her that with time the pain will subside. 11/29/2018-discomfort persists. The abdomen is slightly distended. Bowel sounds are positive. I believe it is still related to the C. difficile colitis. Occult blood was noted in a stool specimen at the time of admission. I will order an abdominal x-ray to help assess. (4) Dehydration Is this a current diagnosis for this admission?: Yes Plan: 11/29/2018-it is likely that the patient was somewhat dehydrated on admission as her hematocrit dropped with IV fluids. Her hemoglobin dropped a little bit as well. BUN was actually normal and so dehydration was likely mild. She did have a guaiac positive stool earlier and so the drop in hemoglobin certainly could reflect occult blood loss from the inflammation in the colon. We will continue to monitor her CBC. Her appetite is improving and oral fluids are improving as well. - Time Time Spent with patient: 15-24 minutes Medications reviewed and adjusted accordingly: Yes Anticipated discharge: Home
[2018-11-29] MEDS: PRAMIPEXOLE DI-HCL 0.5 MG TABLET PO SCH (17:57)
[2018-11-29] MEDS: SIMVASTATIN 40 MG TABLET PO SCH (23:04)
[2018-11-29] MEDS: MIRTAZAPINE 15 MG TABLET PO SCH (23:04)
[2018-11-29] MEDS: LORAZEPAM 1 MG TABLET PO PRN (23:11)
[2018-11-30] MEDS: VANCOMYCIN HCL INJ 500 MG VIAL PO SCH ×3 (01:21→12:43)
--- NOTE | 2018-11-30 04:29 | RADIOLOGY REPORT (SQ) ---
CLINICAL HISTORY: abdominal distention COMPARISON: None. TECHNIQUE: XR ABDOMEN 1 VIEW (KUB) 11/29/2018 12:00 AM CDT FINDINGS: Bowel gas pattern is nonspecific. There are no abnormal radiopaque foreign bodies or abnormal calcifications. Osseous structures are grossly unremarkable. Cholecystectomy was performed. IMPRESSION: No bowel obstruction.
[2018-11-30] MEDS: HEPARIN SOD (PORCINE) 5,000 UNIT/ML 1 ML VIAL SUBCUT SCH ×3 (05:32→22:59)
[2018-11-30] MEDS: METRONIDAZOLE 500 MG TABLET PO SCH ×4 (05:32→23:00)
[2018-11-30] MEDS: LACTOBACILLUS ACIDOPHILUS 250 MG TAB PO SCH ×2 (09:54→17:21)
[2018-11-30] MEDS: FIDAXOMICIN 200 MG TABLET PO SCH ×2 (09:54→22:59)
[2018-11-30] MEDS: PANTOPRAZOLE SODIUM 40 MG TABLET.DR PO SCH (09:54)
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
[2018-11-30] MEDS: PRAMIPEXOLE DI-HCL 0.5 MG TABLET PO SCH (17:21)
[2018-11-30] MEDS: POLYVINYL ALCOHOL 1.4% OPH SOLN 15 ML OU PRN (17:23)
[2018-11-30] MEDS: SIMVASTATIN 40 MG TABLET PO SCH (22:59)
[2018-11-30] MEDS: LORAZEPAM 1 MG TABLET PO PRN (22:59)
[2018-11-30] MEDS: MIRTAZAPINE 15 MG TABLET PO SCH (22:59)
[2018-12-01] MEDS: METRONIDAZOLE 500 MG TABLET PO SCH ×2 (06:03→11:07)
[2018-12-01] MEDS: HEPARIN SOD (PORCINE) 5,000 UNIT/ML 1 ML VIAL SUBCUT SCH (06:03)
[2018-12-01 06:14] LABS: HEMATOCRIT 37.9 % (36.0-47.0); HEMOGLOBIN 12.5 g/dL (12.0-15.5); MEAN CORPUSCULAR HGB CONC 32.9 g/dL (32.0-36.0); MEAN CORPUSCULAR VOLUME 88 fl (80-97); PLATELET COUNT 356 10^3/uL (150-450); RED BLOOD COUNT 4.31 10^6/uL (3.72-5.28); RED CELL DISTRIBUTION WIDTH 14.4 % (11.5-14.0); WHITE BLOOD COUNT 8.6 10^3/uL (4.0-10.5)
[2018-12-01 06:31] LABS: ANION GAP 8 (5-19); BLOOD UREA NITROGEN 10 mg/dL (7-20); CALCIUM 9.7 mg/dL (8.4-10.2); CARBON DIOXIDE 30 mmol/L (22-30); CHLORIDE 103 mmol/L (98-107); GLUCOSE 96 mg/dL (75-110); POTASSIUM 4.1 mmol/L (3.6-5.0)
[2018-12-01] MEDS: POLYVINYL ALCOHOL 1.4% OPH SOLN 15 ML OU PRN (06:41)
[2018-12-01] MEDS: FIDAXOMICIN 200 MG TABLET PO SCH (09:51)
[2018-12-01] MEDS: LACTOBACILLUS ACIDOPHILUS 250 MG TAB PO SCH (09:51)
[2018-12-01] MEDS: PANTOPRAZOLE SODIUM 40 MG TABLET.DR PO SCH (09:51)
--- NOTE | 2018-12-01 12:28 | PDOC DISCHARGE SUMMARY ---
General - Admit/Disc Date/PCP Admission Date/Primary Care Provider: 11/23/18 13:00 Discharge Date: 12/01/18 - Discharge Diagnosis (1) C. difficile diarrhea Is this a current diagnosis for this admission?: Yes Summary: Patient finally responded once Dificid was added. She will discharge on metronidazole and Dificid for 4 additional days. (2) Leukocytosis Is this a current diagnosis for this admission?: Yes Summary: Resolved (3) Abdominal pain Is this a current diagnosis for this admission?: Yes Summary: Resolved (4) Dehydration Is this a current diagnosis for this admission?: Yes Summary: Resolved - Additional Information Resuscitation Status: Full Code Discharge Diet: Regular Discharge Activity: Activity As Tolerated Prescriptions: Fidaxomicin [Dificid 200 mg Tablet] 200 mg PO Q12 4 Days #8 tablet Metronidazole [Flagyl 500 mg Tablet] 500 mg PO Q6 4 Days #16 tablet Home Medications: Alendronate Sodium [Fosamax "Weekly" 35 mg Tablet] 35 mg PO GALVAN@1000 11/23/18 Estradiol [Estrace] 1 applic PV MOWEFR@1000 11/23/18 Lansoprazole [Prevacid] 30 mg PO DAILY 11/23/18 Lorazepam [Ativan 1 mg Tablet] 1 mg PO DAILYP PRN 11/23/18 Mirtazapine [Remeron 15 mg Tablet] 15 mg PO QHS 11/23/18 Pramipexole Di-HCl [Mirapex] 1 mg PO QHS 11/23/18 Simvastatin [Zocor 40 mg Tablet] 40 mg PO QHS 11/23/18 Fidaxomicin [Dificid 200 mg Tablet] 200 mg PO Q12 4 Days #8 tablet 12/01/18 Lactobacillus Acidophilus [Bacid 250 mg Tablet] 500 mg PO BID tab 12/01/18 Metronidazole [Flagyl 500 mg Tablet] 500 mg PO Q6 4 Days #16 tablet 12/01/18 History of Present Illness Patient complains of: Patient presented with abdominal pain diarrhea History of Present Illness: JOSE ESPINOZA is a 73 year old female treated with antibiotics several days prior to the initiation of frequent bowel movements with abdominal pain and an elevated white blood cell count. Serology for C. difficile was positive and the patient was referred to the hospital service for admission. Hospital Course Hospital Course: The initial regimen of vancomycin with Flagyl did not seem to be effective. Dificid was added. She began to feel better with decreased bowel movements and decreasing abdominal pain. The vancomycin is not in pill form and was making the patient nauseated and therefore once the Dificid was on board and showing clinical improvement I discontinued vancomycin. The patient will be discharged on Flagyl and Dificid for 4 additional days. She did have a formed stool today. She is feeling much better and in agreement with the plan to go home. Going to provide written prescriptions as it is unclear which pharmacies may or may not be open. Physical Exam Vital Signs: Temp Pulse Resp BP Pulse Ox 98.4 F 96 18 142/77 H 97 12/01/18 08:53 12/01/18 08:53 12/01/18 08:53 12/01/18 08:53 12/01/18 08:53 Intake & Output 11/30/18 12/01/18 12/02/18 06:59 06:59 06:59 Intake Total 216 1242 Output Total 1150 1302 Balance -934 -60 Weight 69 kg 69 kg General appearance: PRESENT: no acute distress, cooperative, well-developed Head exam: PRESENT: atraumatic, normocephalic Respiratory exam: PRESENT: clear to auscultation radha, unlabored. ABSENT: rales, rhonchi, tachypnea, wheezes Cardiovascular exam: PRESENT: RRR, +S1, +S2 GI/Abdominal exam: PRESENT: normal bowel sounds, soft. ABSENT: distended, tenderness Extremities exam: ABSENT: joint swelling, pedal edema Neurological exam: PRESENT: alert, awake, oriented to person, oriented to place, oriented to time, oriented to situation, CN II-XII grossly intact. ABSENT: motor sensory deficit Psychiatric exam: PRESENT: appropriate affect, normal mood. ABSENT: agitated, anxious Focused psych exam: ABSENT: delusional, restlessness Skin exam: PRESENT: dry, normal color, warm. ABSENT: rash Results Laboratory Results: 12/01/18 05:57 12/01/18 05:57 12/01/18 12/01/18 05:57 05:57 WBC 8.6 RBC 4.31 Hgb 12.5 Hct 37.9 MCV 88 MCH 29.0 MCHC 32.9 RDW 14.4 H Plt Count 356 Sodium 140.8 Potassium 4.1 Chloride 103 Carbon Dioxide 30 Anion Gap 8 BUN 10 Creatinine 0.72 Est GFR ( Amer) > 60 Glucose 96 Calcium 9.7 Magnesium 2.0 Impressions: KUB X-Ray 11/29/18 00:00 IMPRESSION: No bowel obstruction. Qualifiers - * PATIENT BEING DISCHARGED WITH ANY OF THE FOLLOWING DIAGNOSIS: No Acute Heart Failure - Is this a Heart Failure Patient?: No Plan Discharge Plan: Discharge to home. Complete antibiotics as ordered. Continue probiotics. Follow-up with primary care provider early next week. Time Spent: Greater than 30 Minutes
[2018-12-01 12:39] VITALS: BP 105/55
== END 2018-12-01 13:00 | disposition home or self-care (01) | DRG 373 ==
LOC: ER 08:59 → EH 13:00 → 5 16:23
PROVIDERS: ADMIT Family Medicine; ATTEND Family Medicine
DX: A04.72 Enterocolitis due to Clostridium difficile, not specified as recurrent (principal); D72.829 Elevated white blood cell count, unspecified; E86.0 Dehydration; Z87.891 Personal history of nicotine dependence; Z88.5 Allergy status to narcotic agent; Z88.8 Allergy status to other drugs, medicaments and biological substances
CPT/HCPCS: 36415; 74018; 80048; 80053; 81001; 82272; 83690; 83735; 85025; 85027; 87045; 87205; 87493; 96360; 96361; 99284; J1644; J3370; J3490; J7030